=== PATIENT | male | born 1940 | race Caucasian/White ===

== ENCOUNTER 2016-10-09 08:19 | Emergency (ER) | payer SELFPAY ==
[~2016-10-09] VITALS: Ht 175.3 cm; Wt 81.6 kg
[2016-10-09 08:29] VITALS: BP 106/66
== END 2016-10-09 10:12 | disposition home or self-care (01) ==
LOC: ER 08:19
DX: S22.32XA Fracture of one rib, left side, initial encounter for closed fracture (principal); S51.811A Laceration without foreign body of right forearm, initial encounter; I48.91 Unspecified atrial fibrillation; F17.210 Nicotine dependence, cigarettes, uncomplicated; W18.09XA Striking against other object with subsequent fall, initial encounter; Y93.89 Activity, other specified; Y92.89 Other specified places as the place of occurrence of the external cause; Y99.8 Other external cause status
CPT/HCPCS: 12005; 71101